=== PATIENT | female | born 1995 | race Caucasian/White ===

== ENCOUNTER → 2016-06-28 | Outpatient (CLI) | payer BC | END | disposition home or self-care (01) | LOC: LAB 16:00 | PROVIDERS: ATTEND Obstetrics & Gynecology | DX: Z34.00 Encounter for supervision of normal first pregnancy, unspecified trimester (principal) | CPT/HCPCS: 87086 ==

== ENCOUNTER → 2016-07-04 | Outpatient (CLI) | payer BC ==
[2016-07-04 08:03] LABS: Basophils # (auto) 0.1 uL; Basophils % (auto) 0.4 % (0.0-2.0); Eosinophils # (auto) 0.2 uL; Eosinophils % (auto) 1.2 % (0.0-7.0); Hematocrit 35.7 % (36.0-46.0); Hemoglobin 11.7 g/dL (12.2-16.2); Lymphocytes # (auto) 1.3 uL; Lymphocytes % (auto) 10.5 % (10.0-50.0); Mean Corpuscular Hemoglobin 30.7 pg (28.0-32.0); Mean Corpuscular Hgb Conc. 32.8 g/dL (32.0-36.0); Mean Corpuscular Volume 93.7 fL (80.0-100.0); Mean Platelet Volume 8.5 fL (7.4-10.4); Monocytes # (auto) 0.7 uL; Monocytes % (auto) 5.5 % (0.0-12.0); Neutrophils # (auto) 10.4 uL; Neutrophils % (auto) 82.4 % (37.0-80.0); Platelet Count (auto) 223 10^3/uL (140-450); Red Cell Distribution Width 12.7 % (11.6-16.0); SUSPECT VIEW TRANSMISSION; White Blood Cell 12.7 10^3/uL (4.4-10.8)
== END | disposition home or self-care (01) ==
LOC: LAB 07:28
PROVIDERS: ATTEND Obstetrics & Gynecology
DX: Z34.00 Encounter for supervision of normal first pregnancy, unspecified trimester (principal); O99.810 Abnormal glucose complicating pregnancy
CPT/HCPCS: 36415; 82951; 85025

== ENCOUNTER → 2016-07-25 | Outpatient (CLI) | payer BC | END | disposition home or self-care (01) | LOC: LAB 15:24 | PROVIDERS: ATTEND Obstetrics & Gynecology | DX: R73.09 Other abnormal glucose (principal); Z34.80 Encounter for supervision of other normal pregnancy, unspecified trimester | CPT/HCPCS: 36415; 83036 ==

== ENCOUNTER 2016-08-09 14:05 | Observation (INO) | payer BC ==
[2016-08-09] MEDS ORDERED: BETAMETHASONE ACET (6MG/ML) 5ML VIAL IM ONE (15:00)
[2016-08-09] MEDS ORDERED: TERBUTALINE SULFATE 1 MG/ML 1ML VIAL SC ONE (15:00)
[2016-08-09 15:15] LABS: Urine Bilirubin Negative (Negative); Urine Blood Negative /uL (Negative); Urine Color Yellow (Yellow); Urine Mucus FEW (None Seen); Urine Nitrite Negative (Negative); Urine RBC 1 /hpf (0 - 4); Urine Squamous Epithelial Cell FEW /hpf (<5); Urine Urobilinogen Normal (Negative); Urine pH 6.5 (5.0-8.0)
[2016-08-09 15:31] LABS: Urine Glucose 2+ mg/dL (Normal); Urine Ketone 1+ (Negative)
== END 2016-08-09 16:10 | disposition home or self-care (01) | DRG 781 ==
LOC: LDRP 14:05
PROVIDERS: ADMIT Obstetrics & Gynecology; ATTEND Obstetrics & Gynecology
DX: O23.43 Unspecified infection of urinary tract in pregnancy, third trimester (principal); Z3A.33 33 weeks gestation of pregnancy
CPT/HCPCS: 59025; 81001; 81002; 96372; G0378; G0434; J0702; J3105

== ENCOUNTER 2016-08-10 14:45 | Observation (INO) | payer BC ==
[~2016-08-10] VITALS: Ht 154.9 cm; Wt 74.8 kg
[2016-08-10] MEDS ORDERED: BETAMETHASONE ACET (6MG/ML) 5ML VIAL IM ONE (15:15)
[2016-08-10] MEDS ORDERED: TERBUTALINE SULFATE 1 MG/ML 1ML VIAL SC SCH (15:30)
[2016-08-10] MEDS: ceFAZolin 1GM/50ML D5W 50 ML IV ONE ×2 (16:10→16:23)
[2016-08-10] MEDS ORDERED: CLINDAMYCIN 900MG IV 50 ML IV ONE (16:15)
[2016-08-10] MEDS ORDERED: NIFEdipine 10 MG CAP PO ONE (18:15)
[2016-08-10] MEDS ORDERED: NIFEdipine 10 MG CAP ONE (18:16)
== END 2016-08-10 20:53 | disposition home or self-care (01) | DRG 782 ==
LOC: LDRP 14:45
PROVIDERS: ADMIT Obstetrics & Gynecology; ATTEND Obstetrics & Gynecology
DX: O62.9 Abnormality of forces of labor, unspecified (principal); Z3A.33 33 weeks gestation of pregnancy
CPT/HCPCS: 59025; 76805; 81002; 82962; 96365; 96372; G0378; J0690; J0702; J3105; J3490; 96366

== ENCOUNTER 2016-08-17 13:55 | Observation (INO) | payer BC | END 2016-08-17 15:55 | disposition home or self-care (01) | DRG 778 | LOC: LDRP 13:55 | PROVIDERS: ADMIT Specialist; ATTEND Specialist | DX: O60.03 Preterm labor without delivery, third trimester (principal); Z3A.34 34 weeks gestation of pregnancy | CPT/HCPCS: 59025; 76818; G0378; 96365 ==

== ENCOUNTER → 2016-08-22 | Outpatient (CLI) | payer BC ==
[2016-08-22 12:16] LABS: Basophils # (auto) 0.1 uL; Basophils % (auto) 0.5 % (0.0-2.0); Eosinophils # (auto) 0.1 uL; Eosinophils % (auto) 0.8 % (0.0-7.0); Hematocrit 33.3 % (36.0-46.0); Hemoglobin 11.3 g/dL (12.2-16.2); Lymphocytes # (auto) 1.2 uL; Lymphocytes % (auto) 11.9 % (10.0-50.0); Mean Corpuscular Hemoglobin 28.6 pg (28.0-32.0); Mean Corpuscular Hgb Conc. 33.9 g/dL (32.0-36.0); Mean Corpuscular Volume 84.4 fL (80.0-100.0); Mean Platelet Volume 10.4 fL (7.4-10.4); Monocytes # (auto) 0.9 uL; Monocytes % (auto) 9.1 % (0.0-12.0); Neutrophils % (auto) 77.7 % (37.0-80.0); Platelet Count (auto) 206 10^3/uL (140-450); Red Cell Distribution Width 15.8 % (11.6-16.0); SUSPECT VIEW TRANSMISSION; White Blood Cell 10.3 10^3/uL (4.4-10.8)
== END | disposition home or self-care (01) ==
LOC: LAB 11:46
PROVIDERS: ATTEND Obstetrics & Gynecology
DX: Z34.00 Encounter for supervision of normal first pregnancy, unspecified trimester (principal); Z11.3 Encounter for screening for infections with a predominantly sexual mode of transmission; N76.0 Acute vaginitis
CPT/HCPCS: 36415; 85025; 86592; 87081

== ENCOUNTER 2016-09-20 05:55 | Inpatient (IN) | payer BC ==
[2016-09-20] VITALS (10 sets, daily range): BP systolic 105–131; BP diastolic 55–76
[~2016-09-20] VITALS: Ht 157.5 cm; Wt 80.3 kg
[2016-09-20] MEDS ORDERED: LACTATED RINGER'S 1,000 ML IV SCH (06:49)
[2016-09-20] MEDS ORDERED: LACT. RINGERS/OXYTOCIN 20UNITS 1,000 ML IV SCH (06:49)
[2016-09-20] MEDS ORDERED: NALBUPHINE HCL 10 MG/1ml INJECTION IV PRN (07:00)
[2016-09-20] MEDS ORDERED: PHISODERM TOP SOLN 240ML BTL TOP PRN (07:00)
[2016-09-20] MEDS ORDERED: CARBOPROST TROMETHAMINE 250 MCG/1ML VIAL IM PRN (07:00)
[2016-09-20] MEDS ORDERED: DERMOPLAST 60ML BOTTLE TOP PRN (07:00)
[2016-09-20] MEDS ORDERED: WITCH HAZEL-GLYCERIN PAD TOP PRN (07:00)
[2016-09-20] MEDS ORDERED: LIDOCAINE 2%HCL (LOCAL ANESTH.) INJ 20ML MDV IJ ONE (07:00)
[2016-09-20] MEDS ORDERED: METHYLERGONOVINE MALEATE 0.2 MG/ML AMP IM PRN (07:00)
[2016-09-20] MEDS ORDERED: PROMETHAZINE HCL 25 MG/ML 1ML IV PRN (07:00)
[2016-09-20 07:25] LABS: Basophils # (auto) 0 uL; Basophils % (auto) 0.2 % (0.0-2.0); Eosinophils # (auto) 0.1 uL; Eosinophils % (auto) 0.5 % (0.0-7.0); Hematocrit 36.3 % (36.0-46.0); Hemoglobin 11.9 g/dL (12.2-16.2); Lymphocytes # (auto) 1.3 uL; Lymphocytes % (auto) 8.8 % (10.0-50.0); Mean Corpuscular Hemoglobin 27.3 pg (28.0-32.0); Mean Corpuscular Hgb Conc. 32.7 g/dL (32.0-36.0); Mean Corpuscular Volume 83.6 fL (80.0-100.0); Mean Platelet Volume 11.2 fL (7.4-10.4); Monocytes % (auto) 6.6 % (0.0-12.0); Neutrophils # (auto) 12.8 uL; Neutrophils % (auto) 83.9 % (37.0-80.0); Platelet Count (auto) 207 10^3/uL (140-450); Red Cell Distribution Width 18.5 % (11.6-16.0); White Blood Cell 15.3 10^3/uL (4.4-10.8)
[2016-09-20] MEDS ORDERED: IBUPROFEN 800 MG TAB PO PRN (07:30)
[2016-09-20] MEDS ORDERED: BISACODYL 10 MG RECT SUPP PR PRN (07:30)
[2016-09-20] MEDS ORDERED: HYDROcodone-ACET 10/325MG TAB PO PRN (07:30)
[2016-09-20 07:32] LABS: Urine Bilirubin Negative (Negative); Urine Color Yellow (Yellow); Urine Glucose Normal (Normal); Urine Ketone Negative (Negative); Urine Mucus FEW (None Seen); Urine Nitrite Negative (Negative); Urine RBC 290 /hpf (0 - 4); Urine Squamous Epithelial Cell MOD /hpf (<5); Urine Urobilinogen Normal (Negative); Urine pH 6.5 (5.0-8.0)
[2016-09-20 07:33] LABS: Urine Blood 3+ /uL (Negative)
[2016-09-20 07:44] LABS: INR 0.9 (0.9-1.15); Partial Thromboplastin Time 23.6 sec (22.64-33.71); Prothrombin Time 9.7 sec (9.37-12.3)
[2016-09-20] MEDS ORDERED: NALOXONE HCL 0.4 MG/ML VIAL IV ONE ×2 (08:15→09:15)
[2016-09-20] MEDS ORDERED: ePHEDrine SULFATE 50 MG/ML AMP IV ONE ×2 (08:15→09:15)
[2016-09-20] MEDS ORDERED: fentaNYL W ROPIVACAINE 150 ML EPI SCH ×2 (08:15→09:15)
[2016-09-20] MEDS ORDERED: fentaNYL CITRATE 100 MCG/2 ML VL IV ONE (08:15)
[2016-09-20] MEDS ORDERED: LIDOCAINE HCL 2 %PF INJ 10ML AMP IJ ONE (08:15)
[2016-09-20] MEDS ORDERED: DOCUSATE CALCIUM 240 MG CAP PO SCH (10:00)
[2016-09-20] MEDS ORDERED: DOCUSATE SOD 100 MG CAP PO SCH (10:00)
[2016-09-20] MEDS ORDERED: FERROUS SULFATE 325 MG TAB PO SCH (10:00)
[2016-09-20] MEDS ORDERED: SIMETHICONE 80 MG CHEWABLE TABLET PO SCH (12:00)
[2016-09-20] MEDS ORDERED: MIDAZOLAM HCL 1MG/1ML-2 ML VIAL ONE (13:52)
[2016-09-20] MEDS ORDERED: LIDOCAINE 2%HCL (LOCAL ANESTH.) INJ 20ML MDV ONE (13:52)
[2016-09-20] MEDS ORDERED: SODIUM CHLORIDE LOCK 20 ML ONE (13:52)
[2016-09-20] MEDS ORDERED: ceFAZolin 1GM VL ONE (13:52)
[2016-09-20] MEDS ORDERED: fentaNYL CITRATE 100 MCG/2 ML VL ONE (13:52)
[2016-09-20] MEDS ORDERED: SODIUM BICARBONATE INFANT SYR 10 ML SYRG IV ONE (13:52)
[2016-09-20] MEDS ORDERED: MORPHINE SULF(PF) 0.5MG/ML 10ML VIAL ONE (13:52)
[2016-09-20] MEDS ORDERED: OXYTOCIN 10 UNIT/ML 10ML VIAL ONE (13:52)
[2016-09-20] MEDS ORDERED: ePHEDrine SULFATE 50 MG/ML AMP ONE (13:52)
[2016-09-20] MEDS ORDERED: CLINDAMYCIN 600MG IV 50 ML IV ONE (14:30)
[2016-09-20] MEDS ORDERED: KETOROLAC TROMETH 30 MG/ML 1ML VIAL ONE (15:10)
[2016-09-20] MEDS ORDERED: MEPERIDINE HCL (50 MG/ML) 1 ML VIAL ONE (15:17)
[2016-09-20] MEDS: LACTATED RINGER'S 1,000 ML IV SCH ×2 (15:27→23:27)
[2016-09-20] MEDS ORDERED: NALOXONE HCL 0.4 MG/ML VIAL IV PRN (15:30)
[2016-09-20] MEDS ORDERED: KETOROLAC TROMETH 30 MG/ML 1ML VIAL IV ONE (15:30)
[2016-09-20] MEDS ORDERED: METOCLOPRAMIDE HCL 5MG/ml INJ 2ml VIAL IV ONE (15:30)
[2016-09-20] MEDS ORDERED: HYDROmorphone HCL 2 MG/ML VL IV PRN ×2 (15:30)
[2016-09-20] MEDS ORDERED: diphenhdrAMINE HCL 50 MG/1 ML VL IV PRN (15:30)
[2016-09-20] MEDS: KETOROLAC TROMETH 30 MG/ML 1ML VIAL IV SCH (21:32)
[2016-09-20] MEDS: CLINDAMYCIN 900MG IV 50 ML IV SCH (22:48)
[2016-09-21] VITALS (8 sets, daily range): BP systolic 110–131; BP diastolic 63–85
[2016-09-21] MEDS: KETOROLAC TROMETH 30 MG/ML 1ML VIAL IV SCH ×2 (03:09→09:00)
[2016-09-21] MEDS: CLINDAMYCIN 900MG IV 50 ML IV SCH ×2 (05:57→14:00)
[2016-09-21 07:39] LABS: Basophils # (auto) 0 uL; Basophils % (auto) 0.2 % (0.0-2.0); Eosinophils # (auto) 0 uL; Eosinophils % (auto) 0.3 % (0.0-7.0); Hematocrit 26.1 % (36.0-46.0); Lymphocytes # (auto) 1.2 uL; Lymphocytes % (auto) 9.4 % (10.0-50.0); Mean Corpuscular Hemoglobin 29.2 pg (28.0-32.0); Mean Corpuscular Hgb Conc. 34.6 g/dL (32.0-36.0); Mean Corpuscular Volume 84.5 fL (80.0-100.0); Mean Platelet Volume 10.6 fL (7.4-10.4); Monocytes # (auto) 0.9 uL; Neutrophils # (auto) 10.6 uL; Neutrophils % (auto) 83.1 % (37.0-80.0); Platelet Count (auto) 159 10^3/uL (140-450); Red Cell Distribution Width 18.1 % (11.6-16.0); White Blood Cell 12.8 10^3/uL (4.4-10.8)
[2016-09-21] MEDS: LACTATED RINGER'S 1,000 ML IV SCH (07:47)
[2016-09-21] MEDS: DOCUSATE SOD 100 MG CAP PO SCH ×2 (09:05→21:36)
[2016-09-21] MEDS: SIMETHICONE 80 MG CHEWABLE TABLET PO PRN ×2 (09:05→22:20)
[2016-09-21] MEDS: HYDROcodone-ACET 5/325MG TAB PO PRN ×3 (11:55→21:12)
[2016-09-21] MEDS: SODIUM CHLOR 0.9% PF (SALINE LOCK) 10ML VIAL IV SCH ×2 (14:00→21:36)
[2016-09-21] MEDS: IBUPROFEN 800 MG TAB PO PRN (15:34)
[2016-09-21] MEDS ORDERED: BISACODYL 10 MG RECT SUPP PR PRN (23:45)
[2016-09-22] VITALS (8 sets, daily range): BP systolic 99–125; BP diastolic 53–78
[2016-09-22] MEDS: IBUPROFEN 800 MG TAB PO PRN ×3 (02:21→20:27)
[2016-09-22] MEDS: SODIUM CHLOR 0.9% PF (SALINE LOCK) 10ML VIAL IV SCH ×3 (05:10→21:58)
[2016-09-22] MEDS: SIMETHICONE 80 MG CHEWABLE TABLET PO PRN (08:07)
[2016-09-22] MEDS: HYDROcodone-ACET 5/325MG TAB PO PRN ×2 (08:08→17:51)
[2016-09-22] MEDS: DOCUSATE SOD 100 MG CAP PO SCH ×2 (10:23→21:57)
[2016-09-23 03:50] VITALS: BP 108/67
[2016-09-23] MEDS: HYDROcodone-ACET 5/325MG TAB PO PRN (05:52)
[2016-09-23] MEDS: SODIUM CHLOR 0.9% PF (SALINE LOCK) 10ML VIAL IV SCH (06:00)
[2016-09-23 08:00] VITALS: BP 123/76
[2016-09-23] MEDS: DOCUSATE SOD 100 MG CAP PO SCH (10:00)
[2016-09-23 12:00] VITALS: BP 123/72
== END 2016-09-23 13:05 | disposition home or self-care (01) | DRG 766 ==
LOC: LDRP 05:55 → OBSVTOIN 05:55 → INTOOBSV 05:55 → UNDOADMOB 05:55 → OBSVTOIN 06:10 → LDRP 06:10
PROVIDERS: ADMIT Obstetrics & Gynecology; ATTEND Obstetrics & Gynecology
PROC: 10D00Z1 Extraction of Products of Conception, Low, Open Approach (ICD-10-PCS; principal; 2016-09-20 14:23)
DX: O69.81X0 Labor and delivery complicated by cord around neck, without compression, not applicable or unspecified (principal); O24.420 Gestational diabetes mellitus in childbirth, diet controlled; O62.1 Secondary uterine inertia; O77.0 Labor and delivery complicated by meconium in amniotic fluid; O36.63X0 Maternal care for excessive fetal growth, third trimester, not applicable or unspecified; Z37.0 Single live birth; Z3A.39 39 weeks gestation of pregnancy; Z88.1 Allergy status to other antibiotic agents; Z88.0 Allergy status to penicillin
CPT/HCPCS: 36415; 51702; 59025; 62282; 81001; 81002; 85025; 85610; 85730; 86850; 86900; 86901; 96365; 96366; 96375; J0690; J1885; J2250; J2590; J3010; J3490

== ENCOUNTER → 2016-10-29 | Outpatient (CLI) | payer BC ==
[2016-10-29 07:50] LABS: Basophils # (auto) 0.1 uL; Basophils % (auto) 1.4 % (0.0-2.0); DEFINITIVE VIEW TRANSMISSION; Eosinophils # (auto) 0.6 uL; Eosinophils % (auto) 7.5 % (0.0-7.0); Hematocrit 39.5 % (36.0-46.0); Hemoglobin 12.5 g/dL (12.2-16.2); Lymphocytes # (auto) 2.2 uL; Lymphocytes % (auto) 28.5 % (10.0-50.0); Mean Corpuscular Hemoglobin 26.2 pg (28.0-32.0); Mean Corpuscular Hgb Conc. 31.6 g/dL (32.0-36.0); Mean Platelet Volume 9.8 fL (7.4-10.4); Monocytes # (auto) 0.6 uL; Monocytes % (auto) 8.3 % (0.0-12.0); Neutrophils # (auto) 4.2 uL; Neutrophils % (auto) 54.3 % (37.0-80.0); Platelet Count (auto) 331 10^3/uL (140-450); Red Cell Distribution Width 18.2 % (11.6-16.0); White Blood Cell 7.7 10^3/uL (4.4-10.8)
== END | disposition home or self-care (01) ==
LOC: LAB 07:28
PROVIDERS: ATTEND Obstetrics & Gynecology
DX: Z34.80 Encounter for supervision of other normal pregnancy, unspecified trimester (principal); O99.810 Abnormal glucose complicating pregnancy
CPT/HCPCS: 36415; 82951; 85025

== ENCOUNTER 2020-07-04 08:00 | Emergency (ER) | payer BC, OTHER ==
[~2020-07-04] VITALS: Ht 157.5 cm; Wt 59.0 kg
[2020-07-04 08:33] VITALS: BP 156/87
[2020-07-04] MEDS ORDERED: KETOROLAC TROMETH 60MG/2ML VIAL IM ONE (09:45)
== END 2020-07-04 10:13 | disposition home or self-care (01) ==
LOC: ER 08:00
DX: N39.0 Urinary tract infection, site not specified (principal); Z88.0 Allergy status to penicillin; Z88.1 Allergy status to other antibiotic agents
CPT/HCPCS: 74176; 81002; 81025; 96372; 99284; J1885